=== PATIENT | female | born 1965 | race Caucasian/White ===

== ENCOUNTER 2017-08-10 18:20 | Emergency (ER) | payer OTHER ==
[2017-08-10] MEDS ORDERED: Ibuprofen 600 MG Tab PO ONE (18:37)
--- NOTE | 2017-08-10 19:23 | EDM.PDOC ---
ED HPI GENERAL MEDICAL PROBLEM - General Stated Complaint: INJURED RT KNEE Time Seen by Provider: 08/10/17 18:20 Source of Information: Reports: Patient, Family History Limitations: Reports: No Limitations - History of Present Illness INITIAL COMMENTS - FREE TEXT/NARRATIVE: 51 y.o.w.f came to the ed with her SO after she fell at work onto her right knee alt aspect, unable to walk, bear weight onto her right knee. Pt denies any other acute medical issues. 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: Reports: NSAIDS - Related Data Allergies Allergy/AdvReac Type Severity Reaction Status Date / Time No Known Allergies Allergy Verified 08/10/17 18:44 Home Meds: Home Meds NK [No Known Home Meds] 08/10/17 [History] Review of Systems - Review of Systems Review Of Systems: See Below Constitutional: Reports: No Symptoms Eyes: Reports: No Symptoms Ears: Reports: No Symptoms Nose: Reports: No Symptoms Mouth/Throat: Reports: No Symptoms Respiratory: Reports: No Symptoms Cardiovascular: Reports: No Symptoms GI/Abdominal: Reports: No Symptoms Genitourinary: Reports: No Symptoms Musculoskeletal: Reports: Joint Pain (right knee) Skin: Reports: No Symptoms Neurological: Reports: No Symptoms Psychiatric: Reports: No Symptoms ED EXAM, GENERAL - Physical Exam Exam: See Below Exam Limited By: No Limitations General Appearance: Alert, WD/WN, Moderate Distress Eye Exam: Bilateral Eye: Normal Inspection Ears: Normal External Exam Ear Exam: Bilateral Ear: Auricle Normal Nose: Normal Inspection, Normal Mucosa, No Blood Throat/Mouth: Normal Inspection, Normal Lips Head: Atraumatic, Normocephalic Neck: Normal Inspection, Supple, Non-Tender, Full Range of Motion Respiratory/Chest: No Respiratory Distress, Lungs Clear, Normal Breath Sounds, No Accessory Muscle Use, Chest Non-Tender Cardiovascular: Normal Peripheral Pulses, Regular Rate, Rhythm, No Edema, No Gallop Peripheral Pulses: 1+: Brachial (L) GI/Abdominal: Normal Bowel Sounds, Soft, Non-Tender, No Organomegaly (Female) Exam: Deferred Rectal (Female) Exam: Deferred Back Exam: Normal Inspection, Full Range of Motion Neurological: Alert, Oriented, CN II-XII Intact, Normal Cognition, Abnormal Gait (deu to right knee pain, lat aspect.) Psychiatric: Normal Affect, Normal Mood Skin Exam: Warm, Dry, Intact, Normal Color, No Rash Lymphatic: No Adenopathy Course - Vital Signs Text/Narrative:: 51 y.o.w.f came to the ed with her SO after she fell at work onto her right knee alt aspect, unable to walk, bear weight onto her right knee. Pt denies any other acute medical issues. 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 BP 140/80 RR 18 Pulse ox 100% on RA, Temp 36.6 PE: Tender lat aspect right knee lat aspect, no open wound Imaging: X ray right knee NAD, CT right knee, mild knee effusion. Impression: Right knee sprain vs bursitis vs tendinitis Tx: Toradol, Knee immobilizer crutches Reexam: Improved Plan: D/C with instruction Last Recorded V/S: Last Vital Signs Temp 36.6 C 08/10/17 18:40 Pulse 85 08/10/17 18:40 Resp 18 08/10/17 18:40 BP 140/80 08/10/17 18:40 Pulse Ox 98 08/10/17 18:40 - Orders/Labs/Meds Orders: Active Orders 24 hr Category Date Time Status Knee 3V Rt [CR] Stat Exams 08/10/17 18:36 Taken Lower Extremity wo Cont Rt [CT] Stat Exams 08/10/17 19:39 Taken Ice Bag [Ice Therapy] [OM.PC] Routine Oth 08/10/17 18:37 Ordered Meds: Medications Discontinued Medications Generic Name Dose Route Start Last Admin Trade Name Freq PRN Reason Stop Dose Admin Ibuprofen 600 mg 08/10/17 18:37 08/10/17 19:01 Motrin PO 08/10/17 18:38 600 mg ONETIME ONE Administration Departure - Departure Time of Disposition: 21:19 Disposition: Home, Self-Care 01 Condition: Good Clinical Impression: Tendonitis of knee, right, Right knee sprain, Bursitis due to trauma - Discharge Information Instructions: Knee Sprain, Adult, [id number] Referrals: PCP,None [Primary Care Provider] - Mateo Flores DO [Physician] - Forms: ED Department Discharge, ED Return to Work/School Form Additional Instructions: Please apply ice to the right knee, use knee immobilizer/crutches. Motrin for pain, please f/u with Dt. Mark Burgess, please call for an appointment. Please come back if your symptoms get worse acutely. - My Orders Last 24 Hours: My Active Orders 08/10/17 18:36 Knee 3V Rt [CR] Stat 08/10/17 18:37 Ice Bag [Ice Therapy] [OM.PC] Routine 08/10/17 19:39 Lower Extremity wo Cont Rt [CT] Stat - Assessment/Plan Last 24 Hours: My Active Orders 08/10/17 18:36 Knee 3V Rt [CR] Stat 08/10/17 18:37 Ice Bag [Ice Therapy] [OM.PC] Routine 08/10/17 19:39 Lower Extremity wo Cont Rt [CT] Stat
--- NOTE | 2017-08-11 10:07 | CR ---
INDICATION: Lateral right knee pain after falling on stairs. RIGHT KNEE: Three views of the right knee were obtained, revealing very minimal degenerative changes at the intercondylar spines. A fracture, dislocation, or other significant bone or joint abnormality was not identified. If soft tissue injury is suspected clinically, MRI may be helpful for further evaluation. YELENAD
== END 2017-08-10 21:30 | disposition home or self-care (01) ==
LOC: FB.ED 18:20
DX: S83.91XA Sprain of unspecified site of right knee, initial encounter (principal); M70.51 Other bursitis of knee, right knee; M76.9 Unspecified enthesopathy, lower limb, excluding foot; W19.XXXA Unspecified fall, initial encounter; Y99.0 Civilian activity done for income or pay
CPT/HCPCS: 73562; 73700; 99284; A9270

== ENCOUNTER 2017-09-09 15:55 | Emergency (ER) | payer OTHER, BC ==
[2017-09-09] MEDS ORDERED: Gabapentin 400 MG Cap PO STA (17:08)
--- NOTE | 2017-09-09 17:08 | EDM.PDOC ---
ED HPI GENERAL MEDICAL PROBLEM - General Stated Complaint: RT LEG,FOOT COLD Time Seen by Provider: 09/09/17 16:00 Source of Information: Reports: Patient, Family History Limitations: Reports: No Limitations - History of Present Illness INITIAL COMMENTS - FREE TEXT/NARRATIVE: 51 years old w f with a "torn right lower leg" tendon, came with family to the ed due to a cold right lower extremity. No pain, nl cap refill and the dorsalis pedis pulse was well, checked wit Doppler. Pt smokes, denied trauma. Pt attempted to apply heat to the extremity without improvement. Pt did not take her Gabapentin today, was attempting to call Dr. Mark DO, who is planning to do surgery at her right lower leg to "repair the tendon". Pt denied any other acute medical issues. 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 (see below) (Gabapentin) back of Rt knee going down the foot Pain Score (Numeric/FACES): 5 - Related Data Allergies Allergy/AdvReac Type Severity Reaction Status Date / Time No Known Allergies Allergy Verified 09/09/17 16:55 Home Meds: Home Meds Gabapentin [Neurontin] 300 mg PO TID 09/09/17 [History] Past Medical History - Past Surgical History HEENT Surgical History: Reports: Tonsillectomy Social & Family History - Family History Family Medical History: Noncontributory - Tobacco Use Smoking Status *Q: Current Every Day Smoker Years of Tobacco use: 20 Packs/Tins Daily: 1 - Caffeine Use Caffeine Use: Reports: Soda - Recreational Drug Use Recreational Drug Use: No Review of Systems - Review of Systems Review Of Systems: See Below Constitutional: Reports: No Symptoms Eyes: Reports: No Symptoms Ears: Reports: No Symptoms Nose: Reports: No Symptoms Mouth/Throat: Reports: No Symptoms Respiratory: Reports: No Symptoms Cardiovascular: Reports: No Symptoms GI/Abdominal: Reports: No Symptoms Genitourinary: Reports: No Symptoms Musculoskeletal: Reports: Muscle Pain (Right lower extremity) Skin: Reports: No Symptoms Neurological: Reports: No Symptoms Psychiatric: Reports: No Symptoms ED EXAM, GENERAL - Physical Exam Exam: See Below Exam Limited By: No Limitations General Appearance: Alert, WD/WN, Mild Distress Eye Exam: Bilateral Eye: Normal Inspection Ears: Normal External Exam Ear Exam: Bilateral Ear: Auricle Normal Nose: Normal Inspection, Normal Mucosa Throat/Mouth: Normal Inspection, Normal Lips Head: Atraumatic, Normocephalic Neck: Normal Inspection, Supple, Non-Tender Respiratory/Chest: No Respiratory Distress, Lungs Clear, Normal Breath Sounds Cardiovascular: Normal Peripheral Pulses, Regular Rate, Rhythm, No Edema, No Gallop, No JVD, No Murmur, No Rub Peripheral Pulses: 1+: Brachial (R) GI/Abdominal: Normal Bowel Sounds, Soft (Female) Exam: Deferred Rectal (Female) Exam: Deferred Back Exam: Normal Inspection, Full Range of Motion Extremities: Normal Inspection, Normal Range of Motion, No Pedal Edema, Normal Capillary Refill, Other (Cold to tough of right lower extremity) Neurological: Alert, Oriented, CN II-XII Intact, Normal Cognition, Normal Gait, No Motor/Sensory Deficits Psychiatric: Normal Affect, Normal Mood Skin Exam: Warm, Dry, Intact, Normal Color, No Rash Lymphatic: No Adenopathy Course - Vital Signs Text/Narrative:: 51 years old w f with a "torn right lower leg" tendon, came with family to the ed due to a cold right lower extremity. No pain, nl cap refill and the dorsalis pedis pulse was well, checked wit Doppler. Pt smokes, denied trauma. Pt attempted to apply heat to the extremity without improvement. Pt did not take her Gabapentin today, was attempting to call Dr. Mark DO, who is planning to do surgery at her right lower leg to "repair the tendon". Pt denied any other acute medical issues. BP 146/85 pulse 86 temp 36.7 RR 18 O2 sat 100% on RA PE: WNWD W F with cool right lower ext.n nl CAP refill, puls equal on both lower extremities checked with doppler. Tender lat aspect of lower extremity Impression: Cool right lower extremity with nl CAP refill and FROM. Thx: Gabapentin, warm planket. Reexam: Improved Plan: D/C with instructions Last Recorded V/S: Last Vital Signs Temp 36.4 C 09/09/17 17:33 Pulse 89 09/09/17 17:33 Resp 18 09/09/17 17:33 BP 144/90 H 09/09/17 17:33 Pulse Ox 98 09/09/17 17:33 - Orders/Labs/Meds Meds: Medications Discontinued Medications Generic Name Dose Route Start Last Admin Trade Name Katrin PRN Reason Stop Dose Admin Gabapentin 400 mg 09/09/17 17:08 09/09/17 17:24 Neurontin PO 09/09/17 17:09 Not Given BEDTIME STA Gabapentin 300 mg 09/09/17 17:22 09/09/17 17:30 Neurontin PO 09/09/17 17:23 300 mg ONETIME ONE Administration Departure - Departure Time of Disposition: 17:11 Disposition: Home, Self-Care 01 Condition: Good Clinical Impression: Tendonitis - Discharge Information Instructions: Tendinitis, [id number] Referrals: Mateo Flores DO [Primary Care Provider] - Forms: ED Department Discharge Additional Instructions: Please cont your current meds, please quit tobacco use, please keep the extremities warm, please f/u with Dr. Mark DO,Ortho, please come back if your symptoms get worse acutely.
[2017-09-09] MEDS ORDERED: Gabapentin 300 MG Cap PO ONE (17:22)
== END 2017-09-09 17:33 | disposition home or self-care (01) ==
LOC: FB.ED 15:55
DX: M77.9 Enthesopathy, unspecified (principal); F17.210 Nicotine dependence, cigarettes, uncomplicated; Z79.899 Other long term (current) drug therapy
CPT/HCPCS: 99283; A9270-GY

== ENCOUNTER 2017-09-16 08:52 | Day surgery (SDC) | payer OTHER, BC ==
[2017-09-16] MEDS ORDERED: Lactated Ringers 1,000 ML IV SCH (09:15)
[2017-09-16] MEDS ORDERED: Sodium Chloride 0.9% 10 ML Syringe FLUSH PRN (09:15)
[2017-09-16] MEDS ORDERED: ceFAZolin 2 GM in Premix Bag 1 BAG IV ONE (10:15)
[2017-09-16] MEDS ORDERED: Glycopyrrolate 0.2 MG/ML 5 ML MDV IV ONE (11:30)
[2017-09-16] MEDS ORDERED: Ketorolac 30 MG/ML SDV IVPUSH ONE (11:30)
[2017-09-16] MEDS ORDERED: Dexamethasone 4 MG/ML 5 ML MDV IVPUSH ONE (11:30)
[2017-09-16] MEDS ORDERED: Rocuronium 100 MG/10 ML MDV IV ONE (11:30)
[2017-09-16] MEDS ORDERED: Succinylcholine 200 MG/10 ML MDV IV ONE (11:30)
[2017-09-16] MEDS ORDERED: Lactated Ringers 1,000 ML IV ONE (11:30)
[2017-09-16] MEDS ORDERED: ceFAZolin 1 GM Vial IV ONE (11:30)
[2017-09-16] MEDS ORDERED: Midazolam 1 MG/ML 2 ML SDV IV ONE (11:30)
[2017-09-16] MEDS ORDERED: Propofol 200 MG/20 ML SDV IV ONE (11:30)
[2017-09-16] MEDS ORDERED: Neostigmine Methylsulfate 10 MG/10 ML MDV IVPUSH ONE (11:30)
[2017-09-16] MEDS ORDERED: fentaNYL 100 MCG/2 ML SDV IV ONE (11:30)
[2017-09-16] MEDS ORDERED: Ondansetron 4 MG/2 ML SDV IVPUSH ONE (11:30)
[2017-09-16] MEDS ORDERED: Gentamicin 40 MG/ML 2 ML Vial ONE (12:02)
[2017-09-16] MEDS ORDERED: EPINEPHrine 1 MG/ML SDV ONE (12:03)
[2017-09-16] MEDS ORDERED: Acetaminophen/oxyCODONE 325-5 MG Tab PO ONE (12:59)
[2017-09-16] MEDS ORDERED: Ketorolac 30 MG/ML SDV IM ONE (13:47)
--- NOTE | 2017-09-16 21:03 | OR ---
DATE OF OPERATION: 09/16/2017 SURGEON: Mateo Flores DO PREOPERATIVE DIAGNOSIS: Right knee lateral meniscus tear. POSTOPERATIVE DIAGNOSES: 1. Right lateral meniscus tear. 2. Right medial meniscus tear. PROCEDURE: Right knee arthroscopy with partial medial and lateral menisectomy. ANESTHESIA: General endotracheal intubation. FLUIDS: Lactated ringer solution. ESTIMATED BLOOD LOSS: Less than 10 mL. COMPLICATIONS: None. SPECIMENS: None. DISCHARGE DISPOSITION: Stable to PACU. HISTORY AND INDICATIONS FOR THE PROCEDURE: The patient was seen preoperatively in the clinic. We treated her nonoperatively with an injection. Preoperative imaging confirmed the above mentioned diagnosis. Risks and benefits of the procedure were explained to the patient. Informed consent was obtained. DETAILS OF THE PROCEDURE: The patient was seen preoperatively by myself and the anesthesia staff in the preoperative holding area where the operative site was marked. She was brought to the operative suite by the anesthesia staff where general anesthesia was administered. A well-padded tourniquet was placed on the right thigh. The right lower extremity was then prepped and draped in a sterile manner. Time-out was called identifying the correct patient, correct procedure, and the correct site. Antibiotics have been given within an appropriate period of time. The right lower extremity was then exsanguinated. The tourniquet was raised to 250 mmHg for 27 minutes and taken down after closure. Lateral and medial portals were then made, inspected the suprapatellar pouch as well as the medial and lateral gutter. There were few plica on the lateral side, but was under minimal tension. I then had a shaver go through the medial portal and then performed an infrapatellar fat pad resection. I was unable to visualize the ACL, which appeared to be in good condition. I did go to the medial compartment, which did have a partial medial degenerative tear at the mid portion of the periphery. I then used the shaver and ablation unit to stabilize this and then took a picture of that. I then went to the lateral compartment. This had a fairly large posterior and lateral degenerative tear of the lateral meniscus. I then used a shaver and had an ablation unit on this to stabilize it. At its most anterior portion, there was also degenerative tearing, which had again shaved and ablated. I then went to the lateral compartment to look for any joint lines considering that is where the patient's pain was. I did not find any, but I did release minimally 2 to 3 plica. After this, I removed my instruments, removed as much fluids I could, and then paced two 3-0 nylon horizontal mattresses to medial and lateral portal followed by Betadine soaked adaptic followed by sterile dressing. Tourniquet was let down after the nylon sutures were placed. The patient was then transferred to our hospital bed and taken to the PACU in stable condition. /[id number] BS/MODL
== END 2017-09-16 14:12 | disposition home or self-care (01) ==
LOC: FB.SDS 08:52
PROVIDERS: ATTEND Orthopaedic Surgery
DX: M23.231 Derangement of other medial meniscus due to old tear or injury, right knee (principal); M23.261 Derangement of other lateral meniscus due to old tear or injury, right knee; Z79.899 Other long term (current) drug therapy; F17.210 Nicotine dependence, cigarettes, uncomplicated
CPT/HCPCS: 29880; A9270; J0171; J0690; J1580; J1885; J7120; J0330; J1100; J2250; J2405; J2704; J2710; J3010